=== PATIENT | male | born 1965 | race Caucasian/White ===

== ENCOUNTER → 2019-05-29 | Outpatient (CLI) | payer OTHER | LOC: CAT 14:23 | DX: Z13.6 Encounter for screening for cardiovascular disorders (principal); E78.00 Pure hypercholesterolemia, unspecified; I25.10 Atherosclerotic heart disease of native coronary artery without angina pectoris ==

== ENCOUNTER → 2020-07-30 | Outpatient (CLI) | payer BC | LOC: SJCVCIMAG 09:23 | PROVIDERS: ATTEND Internal Medicine Cardiovascular Disease | DX: I65.23 Occlusion and stenosis of bilateral carotid arteries (principal); R00.0 Tachycardia, unspecified; F17.200 Nicotine dependence, unspecified, uncomplicated ==

== ENCOUNTER → 2021-08-04 | Outpatient (CLI) | payer BC, OTHER | LOC: SJCVCIMAG 07-30 10:19 | PROVIDERS: ATTEND Internal Medicine Cardiovascular Disease | DX: I49.3 Ventricular premature depolarization (principal); R53.83 Other fatigue; R07.9 Chest pain, unspecified; I10 Essential (primary) hypertension; R06.00 Dyspnea, unspecified; Z82.49 Family history of ischemic heart disease and other diseases of the circulatory system ==